=== PATIENT | male | born 1965 | race American Indian/Alaskan Native ===

== ENCOUNTER 2017-04-21 10:36 | Day surgery (SDC) | payer OTHER ==
[2017-04-21] MEDS ORDERED: Lactated Ringer's 500 ML IV ONE (11:07)
[2017-04-21 11:25] VITALS: BMI 27.1
[2017-04-21] MEDS ORDERED: Midazolam 2 MG/2 ML VIAL ONE (11:34)
[2017-04-21] MEDS ORDERED: Propofol 10 mg/ml Inj (20 ML) ONE (11:34)
[2017-04-21 12:13] VITALS: TEMP 97; O2SAT 100
[2017-04-21 12:16] VITALS: BP 165/90; PULSE 64; RESP 18
== END 2017-04-21 13:40 | disposition home or self-care (01) ==
LOC: H.ENDO 10:36
PROVIDERS: ATTEND Internal Medicine Gastroenterology
DX: Z12.11 Encounter for screening for malignant neoplasm of colon (principal); I10 Essential (primary) hypertension; K57.30 Diverticulosis of large intestine without perforation or abscess without bleeding; K64.8 Other hemorrhoids

== ENCOUNTER 2017-08-10 13:58 | Emergency (ER) | payer MEDICAID, OTHER ==
[2017-08-10 13:59] VITALS: BMI 27.1
[2017-08-10 14:26] VITALS: TEMP 98.2; O2SAT 100
[2017-08-10] MEDS ORDERED: Albuterol 0.083% Inhal Sol (2.5 mg/3 mL) UD INH STA (15:06)
[2017-08-10] MEDS ORDERED: Albuterol 0.083% Inhal Sol (2.5 mg/3 mL) UD ONE (15:19)
--- NOTE | 2017-08-10 15:37 | ED PDOC ---
HPI: Headache Time Seen by Provider: 08/10/17 15:06 Chief Complaint (Nursing): Headache Chief Complaint (Provider): COUGH/VOMITING History Per: Patient (52 Y/O MALE HERE WITH COUGHING NOTED AFTER INHALING CLEANING PRODUCTS YESTERDAY. NOTES EPISODE OF VOMITING AT THAT TIME. ) Past Medical History Reviewed: Historical Data, Nursing Documentation, Vital Signs Vital Signs: Last Vital Signs Temp 98.2 F 08/10/17 14:24 Pulse 89 08/10/17 14:24 Resp 20 08/10/17 14:24 BP 196/136 H 08/10/17 14:24 Pulse Ox 100 08/10/17 14:24 - Medical History PMH: HTN Denies: Chronic Kidney Disease - Family History Family History: States: No Known Family Hx - Home Medications Home Medications: Ambulatory Orders Medication Instructions Recorded hydroCHLOROthiazide [Hydrodiuril] 25 mg PO DAILY #14 tab 08/10/17 - Allergies Allergies/Adverse Reactions: Allergies Allergy/AdvReac Type Severity Reaction Status Date / Time No Known Allergies Allergy Verified 04/21/17 11:25 Review of Systems ROS Statement: Except As Marked, All Systems Reviewed And Found Negative Physical Exam - Reviewed Nursing Documentation Reviewed: Yes Vital Signs Reviewed: Yes - Physical Exam Appears: Positive for: Well, Non-toxic, No Acute Distress Head Exam: Positive for: ATRAUMATIC, NORMAL INSPECTION, NORMOCEPHALIC Skin: Positive for: Normal Color, Warm, DRY Eye Exam: Positive for: EOMI, Normal appearance, PERRL ENT: Positive for: Normal ENT Inspection Neck: Positive for: Normal, Painless ROM Cardiovascular/Chest: Positive for: Regular Rate, Rhythm Respiratory: Positive for: CNT, Normal Breath Sounds Gastrointestinal/Abdominal: Positive for: Normal Exam, Bowel Sounds, Soft Back: Positive for: Normal Inspection Extremity: Positive for: Normal ROM Neurologic/Psych: Positive for: Alert, Oriented - Laboratory Results Result Diagrams: 08/10/17 16:20 08/10/17 16:20 - ECG O2 Sat by Pulse Oximetry: 100 - Progress ED Course And Treament: EKG: NSR 82BPM; RBBB; T WAVE ABNORMALITY NOTED ANTERIOR LEADS NOT SEEN ON PRIOR. HCTZ 25 MG X 1 DOSE D/W DR. MELARA. LABETOLOL 10 MG IV X 1 DOSE IN ED CXR: NAD PATIENT ADVISED TO BE ADMITTED FOR OBSERVATION TO EVALUATE NEW EKG CHANGES. DOES NOT WANT TO BE ADMITTED TO HOSPITAL. AMA PAPERWORK REVIEWED WITH HIM AND SIGNED. Disposition - Clinical Impression Clinical Impression: Hypertensive urgency, Acute electrocardiogram changes - Patient ED Disposition Is Patient to be Admitted: No - Disposition Disposition: Against Medical Advice Disposition Time: 18:14 Condition: FAIR Prescriptions: hydroCHLOROthiazide [Hydrodiuril] 25 mg PO DAILY #14 tab Instructions: DASH Eating Plan (GEN), Hypertensive Crisis (GEN) Forms: [employer] (Armenian)
[2017-08-10] MEDS ORDERED: Labetalol 5mg/ml (4ml) IVP STA (16:17)
--- NOTE | 2017-08-10 16:33 | RAD ---
HISTORY: COUGH COMPARISON: Chest x-ray performed 09/28/16 TECHNIQUE: Chest PA and lateral FINDINGS: LUNGS: No focal consolidation. Please note that chest x-ray has limited sensitivity for the detection of pulmonary masses. PLEURA: No significant pleural effusion identified. No definite pneumothorax . CARDIOVASCULAR: Heart size appears within normal limits. Ectatic aorta. OSSEOUS STRUCTURES: No acute osseous abnormality identified. VISUALIZED UPPER ABDOMEN: Unremarkable. OTHER FINDINGS: None. IMPRESSION: No focal consolidation, significant pleural effusion, or definite pneumothorax identified. Ectatic aorta.
[2017-08-10 16:35] LABS: BASO # 0.1 K/uL (0.0-0.2); EOS # 0.2 K/uL (0.0-0.7); EOS % 1.2 % (0.0-4.0); HEMATOCRIT 40.4 % (35.0-51.0); LYMPH # 3.2 K/uL (1.0-4.3); LYMPH % 24.2 % (20.0-40.0); MEAN CELL VOLUME 94.4 fl (80.0-94.0); MEAN CORPUSCULAR HEMOGLOBIN 32.5 pg (27.0-31.0); MEAN CORPUSCULAR HGB CONC 34.4 g/dL (33.0-37.0); MEAN PLATELET VOLUME 8.1 fl (7.2-11.7); MONO % 7.1 % (0.0-10.0); NEUT # 8.9 K/uL (1.8-7.0); NEUT % 66.5 % (50.0-75.0); NRBC % 0.1 % (0.0-0.0); RED CELL DISTRIBUTION WIDTH 14.1 % (11.5-14.5); WHITE BLOOD COUNT 13.3 K/uL (4.8-10.8)
[2017-08-10 16:54] LABS: RBC URINE 2 /hpf (0-3); URINE BILIRUBIN NEGATIVE (NEGATIVE); URINE BLOOD NEGATIVE (NEGATIVE); URINE COLOR YELLOW (YELLOW); URINE GLUCOSE (UA) NEG (Normal); URINE KETONE NEGATIVE (NEGATIVE); URINE LEUKOCYTE ESTERASE NEG Leu/uL (Negative); URINE PROTEIN NEGATIVE (NEGATIVE); URINE UROBILINOGEN 0.2-1.0 mg/dL (0.2-1.0); WBC URINE 1 /hpf (0-5)
[2017-08-10 16:58] LABS: BLOOD UREA NITROGEN 13 mg/dl (9-20); CALCIUM 9.1 mg/dL (8.4-10.2); CARBON DIOXIDE 28 mmol/L (22-30); CHLORIDE 103 mmol/L (98-107); GFR AFRICAN-AMERICAN > 60; GLUCOSE,RANDOM 101 mg/dL (75-110); SODIUM 141 mmol/l (132-148)
[2017-08-10] MEDS ORDERED: Labetalol 5mg/ml (4ml) ONE (17:13)
[2017-08-10 18:53] VITALS: BP 177/100; PULSE 89; RESP 18
--- NOTE | 2017-08-11 10:40 | CARD ---
APPROVED REPORT EKG Measurement Heart [id number] <Conclusion> Normal sinus rhythm with sinus arrhythmia Right bundle branch block Abnormal ECG
== END 2017-08-10 18:15 | disposition left against medical advice (07) ==
LOC: H.ER 13:58
DX: R94.31 Abnormal electrocardiogram [ECG] [EKG] (principal); I16.0 Hypertensive urgency

== ENCOUNTER 2018-02-15 00:16 | Emergency (ER) | payer OTHER ==
[2018-02-15 00:16] VITALS: BMI 27.1
[2018-02-15 00:33] VITALS: RESP 17; TEMP 98; O2SAT 98
[2018-02-15] MEDS ORDERED: Phenylephrine 0.5% Nasal Spray NAS STA (01:03)
[2018-02-15] MEDS ORDERED: Phenylephrine 0.5% Nasal Spray NAS ONE (01:05)
--- NOTE | 2018-02-15 01:07 | ED PDOC ---
HPI: Nose Bleed Time Seen by Provider: 02/15/18 00:39 Chief Complaint (Nursing): ENT Problem Chief Complaint (Provider): nose bleed History Per: Patient History/Exam Limitations: no limitations Onset/Duration Of Symptoms: Waxing/Waning Current Symptoms Are (Timing): Gone Now Location Of Bleeding: Right Nare Symptoms Have Been: Episodic Associated Symptoms: Nasal Congestion Additional Complaint(s): 52 y/o male presents for evaluation of intermittent bleeding from right nostril x 8 hours. Patient states for the last 3 days he has been experiencing nasal congestion and sore throat. Patient states bleeding began after sneezing tonight. Bleeding improved with direct pressure. Denies headache, dizziness, lightheadedness, cough. Patient currently on Amoxicillin and ibuprofen after a tooth extraction last week. Past Medical History Reviewed: Historical Data, Nursing Documentation, Vital Signs Vital Signs: Last Vital Signs Temp 98.0 F 02/15/18 00:25 Pulse 94 H 02/15/18 00:25 Resp 17 02/15/18 00:25 BP 157/90 H 02/15/18 00:25 Pulse Ox 98 02/15/18 00:25 - Medical History PMH: HTN Denies: Chronic Kidney Disease - Surgical History Surgical History: No Surg Hx - Family History Family History: States: No Known Family Hx - Social History Current smoker - smoking cessation education provided: No Drugs: Cocaine (stopped years ago as per patient) - Home Medications Home Medications: Ambulatory Orders Medication Instructions Recorded hydroCHLOROthiazide [Hydrodiuril] 25 mg PO DAILY #14 tab 08/10/17 - Allergies Allergies/Adverse Reactions: Allergies Allergy/AdvReac Type Severity Reaction Status Date / Time No Known Allergies Allergy Verified 04/21/17 11:25 Review of Systems ROS Statement: Except As Marked, All Systems Reviewed And Found Negative ENT: Positive for: Nose Congestion Physical Exam - Reviewed Nursing Documentation Reviewed: Yes Vital Signs Reviewed: Yes - Physical Exam Appears: Positive for: Well, Non-toxic, No Acute Distress Head Exam: Positive for: ATRAUMATIC, NORMAL INSPECTION, NORMOCEPHALIC Skin: Positive for: Normal Color Eye Exam: Positive for: Normal appearance ENT: Positive for: TM Is/Are (clear b/l), Nasal Congestion. Negative for: Pharyngeal Erythema, Tonsillar Exudate, Tonsillar Swelling Cardiovascular/Chest: Positive for: Regular Rate, Rhythm Respiratory: Positive for: Normal Breath Sounds Gastrointestinal/Abdominal: Positive for: Normal Exam Back: Positive for: Normal Inspection Extremity: Positive for: Normal ROM Neurologic/Psych: Positive for: Alert, Oriented - ECG O2 Sat by Pulse Oximetry: 98 - Progress ED Course And Treament: Patient given two sprays of margaret-synephrine No bleeding in ED Patient educated on findings and symptomatic treatment for symptoms Follow up PMD/ENT Return precautions given Disposition - Clinical Impression Clinical Impression: URI (upper respiratory infection), Nosebleed - Patient ED Disposition Is Patient to be Admitted: No Counseled Patient/Family Regarding: Studies Performed, Diagnosis, Need For Followup, Rx Given - Disposition Referrals: Umberto Sharp MD [Staff Provider] - Disposition: Routine/Home Disposition Time: 01:09 Condition: IMPROVED Instructions: Nosebleeds, Viral Upper Respiratory Infection, Adult (DC) Forms: [employer] (Indonesian)
[2018-02-15 01:32] VITALS: BP 148/81; PULSE 85
== END 2018-02-15 01:35 | disposition home or self-care (01) ==
LOC: H.ER 00:16
DX: R04.0 Epistaxis (principal); J06.9 Acute upper respiratory infection, unspecified

== ENCOUNTER 2018-09-10 09:11 | Emergency (ER) | payer OTHER ==
[2018-09-10 09:36] VITALS: BMI 29.9
[2018-09-10 09:40] VITALS: RESP 20; TEMP 98.4
--- NOTE | 2018-09-10 09:44 | ED PDOC ---
HPI: Influenza Time Seen by Provider: 09/10/18 09:22 Chief Complaint: Cough, Cold, Congestion History Per: Patient Additional complaint(s):: Pt. states for the past week he's had worsening nasal congestion associated with cough and sore throat. Reports having SOB which is described as difficulty breathing through the nose and he has to breath through his mouth. States since he's been breathing through his mouth his throat has become dry and is now sore. Denies chest pain, hemoptysis, fever, facial pain, weakness, sick contacts, chills, rash. Past Medical History Reviewed: Historical Data, Nursing Documentation, Vital Signs Vital Signs: Last Vital Signs Temp 98.4 F 09/10/18 09:36 Pulse 69 09/10/18 09:36 Resp 20 09/10/18 09:36 BP 159/90 H 09/10/18 09:35 Pulse Ox 99 09/10/18 09:36 - Medical History PMH: HTN Denies: Chronic Kidney Disease - Family History Family History: States: No Known Family Hx - Home Medications Home Medications: Ambulatory Orders Medication Instructions Recorded hydroCHLOROthiazide [Hydrodiuril] 25 mg PO DAILY #14 tab 08/10/17 Azithromycin [Zithromax] 250 mg PO DAILY #6 tab 09/10/18 Benzonatate [Tessalon Perle] 100 mg PO Q8 PRN #30 capsule 09/10/18 Fluticasone Propionate [Flonase] 2 spr NS DAILY PRN #1 bottle 09/10/18 - Allergies Allergies/Adverse Reactions: Allergies Allergy/AdvReac Type Severity Reaction Status Date / Time No Known Allergies Allergy Verified 04/21/17 11:25 Review of Systems ROS Statement: Except As Marked, All Systems Reviewed And Found Negative ENT: Positive for: Nose Congestion, Throat Pain Respiratory: Positive for: Cough Physical Exam - Physical Exam Appears: Positive for: Well, Non-toxic, No Acute Distress Skin: Positive for: Normal Color, Warm. Negative for: Rash Eye Exam: Positive for: Normal appearance ENT: Positive for: TM Is/Are (non-erythematous, non-bulging b/l), Nasal Congestion, Pharyngeal Erythema. Negative for: Sinus Pain/Drainage, Tonsillar Exudate, Tonsillar Swelling Cardiovascular/Chest: Positive for: Regular Rate, Rhythm Respiratory: Positive for: Normal Breath Sounds. Negative for: Respiratory Distress Neurologic/Psych: Positive for: Alert, Oriented (x3). Negative for: Aphasia, Facial Droop - ECG ECG: Positive for: Interpreted By Me ECG Rhythm: Positive for: Sinus Rhythm. Negative for: ST/T Changes Rate: 84 O2 Sat by Pulse Oximetry: 99 - Radiology X-Ray: Interpreted by Me X-Ray Interpretation: No Acute Disease - Progress ED Course And Treament: CXR, rapid strep ordered. Rapid strep: negative. Disposition - Clinical Impression Clinical Impression: URI (upper respiratory infection) - Patient ED Disposition Is Patient to be Admitted: No - [facility] Disposition: Routine/Home Disposition Time: 10:38 Condition: STABLE Additional Instructions: FOLLOW UP WITH YOUR PRIMARY CARE DOCTOR FOR FURTHER EVALUATION RETURN TO ED IMMEDIATELY IF SYMPTOMS WORSEN PANCHITO RICHARDSON, thank you for letting us take care of you today. Your provider was Maico Brunner MD and you were treated for DIFFICULTY BREATHING,SWOLLEN THROAT. The emergency medical care you received today was directed at your acute symptoms. If you were prescribed any medication, please fill it and take as directed. It may take several days for your symptoms to resolve. Return to the Emergency Department if your symptoms worsen, do not improve, or if you have any other problems. Please contact your doctor or call one of the physicians/clinics you have been referred to that are listed on the Patient Visit Information form that is included in your discharge packet. Bring any paperwork you were given at discharge with you along with any medications you are taking to your follow up visit. Our treatment cannot replace ongoing medical care by a primary care provider outside of the emergency department. Thank you for allowing the [facility] team to be part of your care today. If you had an X-Ray or CT scan: A Radiologist will review the ED reading if any change in treatment is needed we will contact you. If you had a blood, urine, or wound culture: It will take several days for the results, if any change in treatment is needed we will contact you. If you had an STI test: It will take 48 hours for the results. Please call after 1 week if you have not heard back. Prescriptions: Azithromycin [Zithromax] 250 mg PO DAILY #6 tab Benzonatate [Tessalon Perle] 100 mg PO Q8 PRN #30 capsule PRN Reason: Cough Fluticasone Propionate [Flonase] 2 spr NS DAILY PRN #1 bottle PRN Reason: Allergy Symptoms Instructions: Viral Upper Respiratory Infection, Adult (DC) Forms: [employer] [facility] (Albanian) Print Language: TONGAN
[2018-09-10 11:22] VITALS: BP 160/92; PULSE 81; O2SAT 100
--- NOTE | 2018-09-10 13:57 | RAD ---
Date of service: 09/10/2018 HISTORY: Cough COMPARISON: Comparison made with chest radiograph dated 08/10/2017. TECHNIQUE: Chest PA and lateral FINDINGS: LUNGS: No active pulmonary disease. PLEURA: No significant pleural effusion identified. No pneumothorax apparent. CARDIOVASCULAR: Aorta slightly ectatic and uncoiled. Minimal aortic atherosclerotic calcification present. Normal cardiac size. No pulmonary vascular congestion. OSSEOUS STRUCTURES: No significant abnormalities. VISUALIZED UPPER ABDOMEN: Normal. OTHER FINDINGS: None. IMPRESSION: No active disease.
--- NOTE | 2018-09-10 20:46 | CARD ---
APPROVED REPORT Date of service: 09/10/2018 EKG Measurement Heart [id number] ID [id number] <Conclusion> Normal sinus rhythm Right bundle branch block Abnormal ECG
== END 2018-09-10 10:40 | disposition home or self-care (01) ==
LOC: H.ER 09:11
DX: J06.9 Acute upper respiratory infection, unspecified (principal)